=== PATIENT | female | born 1980 | race Caucasian/White ===

== ENCOUNTER → 2019-03-09 | Outpatient (CLI) | payer BC ==
--- NOTE | 2019-03-10 08:27 | MM ---
Reason for exam: screening (asymptomatic). Baseline mammogram. History: Benign excisional biopsy of the right breast, 1996. Took hormonal contraceptives beginning at age 19. Physical Findings: Nurse did not find any significant physical abnormalities on exam. MG 3D Screening Mammo W/Cad Bilateral CC and MLO view(s) were taken. The breast tissue is extremely dense which could obscure a lesion on mammography. There is no discrete abnormality. These results were verbally communicated with the patient and result sheet given to the patient on 03/09/19. ASSESSMENT: Negative, BI-RAD 1 RECOMMENDATION: Routine screening mammogram of both breasts in 1 year.
== END ==
LOC: RADMAMWWP 15:28
PROVIDERS: ATTEND Obstetrics & Gynecology
DX: Z12.31 Encounter for screening mammogram for malignant neoplasm of breast (principal)
CPT/HCPCS: 77063; 77067

== ENCOUNTER 2021-02-18 10:02 | Day surgery (SDC) | payer BC ==
[2021-02-12 16:00] VITALS: BMI 20.5
[~2021-02-18 10:02] MED LIST: LACTATED RINGERS 1,000 ML IV SCH; LIDOCAINE 1% (10MG/ML) FOR IV START INTRADERMA PRN
[2021-02-18 10:37] VITALS: TEMP 97.4
[2021-02-18] MEDS ORDERED: KETOROLAC 15 MG/ML 1 ML VIAL ONE (11:03)
[2021-02-18] MEDS ORDERED: ONDANSETRON 4 MG/2 ML VIAL ONE (11:03)
[2021-02-18] MEDS ORDERED: PROPOFOL 10 MG/ML 20 ML VIAL IV ONE (11:03)
--- NOTE | 2021-02-18 11:09 | P.GSHP ---
History of Present Illness H&P Date: 02/18/21 Chief Complaint: Change in bowel habits Patient today for colonoscopy. Family history of colon cancer in her aunt at age 50. Has had some change in bowel habits recently. Mild abdominal pain and cramps at times. 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 Migraines. c/o Constipation, bloating. History of Any Multi-Drug Resistant Organisms: None Reported Past Surgical History: Breast Surgery, Section Additional Past Surgical History / Comment(s): C-S x2. Rt breast biopsy. [place] teeth Past Anesthesia/Blood Transfusion Reactions: Family History of Problems w/ Anesthesia, Motion Sickness, Postoperative Nausea & Vomiting (PONV) Additional Past Anesthesia/Blood Transfusion Reaction / Comment(s): Mother has PONV Smoking Status: Former smoker - Past Family History Mother Family Medical History: No Reported History Medications and Allergies Home Medications Medication Instructions Recorded Confirmed Type Collagen Vitamin 1 tab PO DAILY 02/12/21 02/18/21 History Fluticasone Propionate [Cutivate] 1 dose TP TID PRN 02/12/21 02/18/21 History Multivitamins, Thera [Multivitamin 1 tab PO DAILY 02/12/21 02/18/21 History (formulary)] Vanquish 2 tab PO DIRECTED PRN 02/12/21 02/18/21 History Allergies Allergy/AdvReac Type Severity Reaction Status Date / Time adhesive tape Allergy Swelling, Verified 02/12/21 15:41 itching of skin Surgical - Exam Vital Signs Temp Pulse Resp BP Pulse Ox 97.4 F L 108 H 16 129/76 97 02/18/21 10:29 02/18/21 10:29 02/18/21 10:29 02/18/21 10:29 02/18/21 10:29 Physical exam: General: Well-developed, well-nourished HEENT: Normocephalic, sclerae nonicteric Abdomen: Nontender, nondistended Extremities: No edema Neuro: Alert and oriented Assessment and Plan (1) Change in bowel habits Narrative/Plan: Will proceed with colonoscopy Current Visit: Yes Status: Acute Code(s): R19.4 - CHANGE IN BOWEL HABIT SNOMED Code(s): 762301597
--- NOTE | 2021-02-18 11:22 | P.PCN ---
Date of Procedure: 02/18/21 Procedure(s) Performed: PREOPERATIVE DIAGNOSIS: Change in bowel habits, family history of colon cancer POSTOPERATIVE DIAGNOSIS: Normal exam PROCEDURE: Colonoscopy ANESTHESIA: MAC SURGEON: Ren John M.D. SPECIMENS: None ENDOSCOPIC PROCEDURE: The patient was placed on the endoscopy table in the left decubitus position. The Olympus colonoscope was inserted into the anus and passed under direct visualization to the base of the cecum. The appendiceal orifice was visualized. From that point the scope was slowly withdrawn inspecting all surfaces carefully. There were no neoplastic inflammatory or polypoid lesions throughout the cecum, ascending, transverse, descending, sigmoid and rectum. There was no visible diverticulosis noted. Digital rectal examination was normal. The patient was taken to the recovery room in stable condition per anesthesia guidelines. RECOMMENDATIONS: Resume diet. Follow colonoscopy age 46
[2021-02-18 11:49] VITALS: BP 106/66; PULSE 93; RESP 16
== END 2021-02-18 12:37 | disposition home or self-care (01) ==
LOC: ORWHC2ENDO 10:02
PROVIDERS: ATTEND Surgery
DX: R19.4 Change in bowel habit (principal); R10.9 Unspecified abdominal pain; Z80.0 Family history of malignant neoplasm of digestive organs; L40.9 Psoriasis, unspecified; G43.909 Migraine, unspecified, not intractable, without status migrainosus; Z98.891 History of uterine scar from previous surgery; Z98.890 Other specified postprocedural states; Z87.891 Personal history of nicotine dependence; Z91.09 Other allergy status, other than to drugs and biological substances
CPT/HCPCS: 81025; 45378; J2405; J1885; J2704

== ENCOUNTER → 2021-02-21 | Outpatient (CLI) | payer BC ==
[2021-02-22 00:17] LABS: Egg White IgE <0.10 kU/L
[2021-02-22 00:18] LABS: Peanut IgE 0.19 kU/L; Soybean IgE 0.17 kU/L; Walnut IgE (Food) <0.10 kU/L
[2021-02-25 07:36] LABS: Almond IgE 0.29 kU/L (<0.10); Almond IgE Class CLASS 0/1; Banana IgE Class CLASS 2; Casein IgE Class CLASS 0; Cashew IgE <0.10 kU/L (<0.10); Cashew IgE Class CLASS 0; Chicken IgE Class CLASS 0; Latex IgE Class CLASS 0/1; Pecan IgE <0.10 kU/L (<0.10); Pecan IgE Class CLASS 0; Pistachio IgE Class CLASS 0/1
== END | disposition home or self-care (01) ==
LOC: LABWHC1 11:18
PROVIDERS: ATTEND Allergy & Immunology
DX: T78.00XA Anaphylactic reaction due to unspecified food, initial encounter (principal); Z91.018 Allergy to other foods
CPT/HCPCS: 36415; 86003

== ENCOUNTER → 2021-04-10 | Outpatient (CLI) | payer BC ==
--- NOTE | 2021-04-15 09:43 | MM ---
Reason for exam: screening (asymptomatic). Last mammogram was performed 2 years and 1 month ago. History: Benign excisional biopsy of the right breast, 1996. Took hormonal contraceptives beginning at age 19. Physical Findings: A clinical breast exam by your physician is recommended on an annual basis and results should be correlated with mammographic findings. MG 3D Screening Mammo W/Cad Bilateral CC and MLO view(s) were taken. Prior study comparison: March 09, 2019, bilateral MG 3d screening mammo w/cad. The breast tissue is extremely dense which could obscure a lesion on mammography. Stable benign calcifications right breast. There is no discrete abnormality. No significant changes when compared with prior studies. ASSESSMENT: Benign, BI-RAD 2 RECOMMENDATION: Routine screening mammogram of both breasts in 1 year.
== END | disposition home or self-care (01) ==
LOC: RADMAMWWP 16:28
PROVIDERS: ATTEND Obstetrics & Gynecology
DX: Z12.31 Encounter for screening mammogram for malignant neoplasm of breast (principal)
CPT/HCPCS: 77063; 77067

== ENCOUNTER → 2021-04-24 | Outpatient (CLI) | payer BC ==
[2021-04-24 23:05] LABS: Basophils # (A) 0.04 X 10*3/uL (0.00-0.10); Basophils % (A) 0.6 %; Eosinophils # (A) 0.24 X 10*3/uL (0.04-0.35); Eosinophils % (A) 3.6 %; HCT 37.4 % (37.2-46.3); HGB 12.2 g/dL (12.0-15.0); Lymphocytes # (A) 1.77 X 10*3/uL (0.90-5.00); Lymphocytes % (A) 26.8 %; MCHC 32.6 g/dL (32.0-37.0); Mean Platelet Volume 10.7 fL (9.5-12.2); Monocytes # (A) 0.53 X 10*3/uL (0.20-1.00); Neutrophils # (A) 4.02 X 10*3/uL (1.80-7.70); Neutrophils % (A) 60.8 %; Platelet Count 191 X 10*3/uL (140-440); RDW 11.7 % (11.5-14.5); WBC 6.61 X 10*3/uL (4.50-10.00)
== END | disposition home or self-care (01) ==
LOC: LABWHC1 15:49
PROVIDERS: ATTEND Obstetrics & Gynecology
DX: Z01.812 Encounter for preprocedural laboratory examination (principal); N92.0 Excessive and frequent menstruation with regular cycle
CPT/HCPCS: 36415; 85025

== ENCOUNTER 2021-05-06 06:12 | Day surgery (SDC) | payer BC ==
--- NOTE | 2021-05-01 14:52 | HP ---
HISTORY AND PHYSICAL DATE OF SURGERY: 05/06/2021 This is a 40-year-old female, 2, para 2, 0, 0, 2 who presents with a history of menorrhagia and endometrial biopsy done in the office. Endometrial biopsy is negative. Patient is requesting NovaSure endometrial ablation. She is aware of the risks, benefits, and alternatives of this procedure. No further pregnancies are planned. PAST MEDICAL HISTORY: Essentially unremarkable. PAST SURGICAL HISTORY: section x2, breast biopsy of negative pathology. CURRENT MEDICATIONS: None. ALLERGIES: Include SUNFLOWER OIL and SURGICAL TAPE to which reports a rash. FAMILY HISTORY: Essentially negative. REPRODUCTIVE HISTORY: sections x2, healthy infants, unremarkable. SOCIAL HISTORY: Patient is a former tobacco smoker. She works for [employer]. She drinks 1-2 cups of coffee a day and is , her 's name is Magdi. She denies alcohol or drug use. CONTRACEPTIVE HISTORY: Patient and her are currently using condoms and are aware of the rate with the same. PHYSICAL EXAMINATION: On examination, the patient is 5 foot 6 inches, 126 pounds, blood pressure 118/72, pulse 102. HEENT exam reveals normal thyroid, no obvious lymphadenopathy, trachea midline. Chest is clear to auscultation in all mckee anteriorly and posteriorly. Cardiac exam reveals regular rate and rhythm with no murmur, click, or rub. Breasts are bilaterally symmetric to inspection with no skin dimpling, nipple discharge, axillary adenopathy, or discernible lesions or masses. Gastrointestinal exam reveals a scaphoid soft abdomen with no organosplenomegaly, no herniorrhaphy, no CVA tenderness. External genitalia are within normal limits for stated age. Cervix is multiparous, Pap is up to date. Uterus is small, mobile, nontender, midline, adnexa are negative bilaterally. Skin reveals normal inspection with no rashes or lesions. Neurologically the patient is intact, normal judgment and insight, normal mood and affect. IMPRESSION: Menorrhagia, requesting NovaSure endometrial ablation. PLAN: We will proceed with NovaSure endometrial ablation. Patient is aware of the need for permanent contraception following the ablation, as this is not a contraceptive procedure. We reviewed the risks of bleeding, infection, perforation or damage to the bladder, bowel, ureters, or any pelvic organ. The patient accepts these risks along with the risks of anesthesia, aspiration, nerve damage, or even . MMODL / IJN: [id number] /
[2021-05-02 15:32] VITALS: BMI 20.1
[~2021-05-06 06:12] MED LIST changes: +DEXAMETHASONE SOD PHOSPHATE 4 MG/ML 1 ML VIAL IV ONE; +Pre Op ABX Message 1 EACH MISC MISCELLANE ONE
[2021-05-06] MEDS ORDERED: SCOPOLAMINE 1.5MG/72HR PATCH TRANSDERM ONE (06:53)
[2021-05-06] MEDS ORDERED: ONDANSETRON 4 MG/2 ML VIAL IVP PRN (07:00)
[2021-05-06] MEDS ORDERED: HYDROmorphone 0.5 MG/0.5 ML SYRINGE IVP PRN (07:00)
[2021-05-06] MEDS ORDERED: PROPOFOL 10 MG/ML 20 ML VIAL IV ONE (07:20)
[2021-05-06] MEDS ORDERED: MIDAZOLAM 2 MG/2 ML VIAL ONE (07:20)
[2021-05-06] MEDS ORDERED: LIDOCAINE 1% INJ 10MG/ML (20 ML MDV) ONE (07:20)
[2021-05-06] MEDS ORDERED: KETOROLAC 15 MG/ML 1 ML VIAL ONE (07:20)
[2021-05-06] MEDS ORDERED: NALOXONE 0.4 MG/ML 1 ML VIAL ONE (07:20)
[2021-05-06] MEDS ORDERED: fentaNYL (PF) 50 MCG/ML 2 ML AMP ONE (07:20)
[2021-05-06] MEDS ORDERED: SILVER NITRATE APPLICATOR 1 EACH STICK..EA. TOPICAL ONE (07:52)
--- NOTE | 2021-05-06 08:14 | P.OP ---
Date of Procedure: 05/06/21 Preoperative Diagnosis: Hypermenorrhea, 2 previous sections Postoperative Diagnosis: Endometrial cavity dimensions inadequate for ablation procedure. Cavity otherwise negative. Procedure(s) Performed: Hysteroscopy, examination under anesthesia, endometrial ablation attempted, unsuccessful Anesthesia: KAITLIN Surgeon: Mari Ryder Estimated Blood Loss (ml): 5 IV fluids (ml): 400 Urine output (ml): 25 Pathology: none sent Condition: stable Operative Findings: Endometrial cavity clear. Ostia within normal limits. Cavity very small, uterine sound to 5 cm. Examination otherwise within normal limits. Description of Procedure: Patient is brought to the operating suite where a general anesthetic is administered. The appropriate timeout is performed to assure proper patient and procedural identification. Urine hCG is negative. Cervix and vagina as well as perineal bodies are all prepped and draped in usual sterile fashion. Exam under anesthesia reveals a small retroverted uterus, adnexa negative bilaterally. Bladder is drained for 5 mL of clear urine with a nonlatex catheter. Weighted speculum was placed into the vagina. Anterior lip of the cervix is grasped with a double-tooth tenaculum. Uterus sounds to 5 cm in the retroverted position. Cervix was gently and systematically dilated using Hanks dilators. Hysteroscope was placed and the cavity is infused with sterile saline. The cavity appears negative, ostia appear within normal limits. Hysteroscope was removed. The NovaSure wand is then placed. The wand is unable to open secondary to a very small endometrial cavity. This was attempted 3 times, uterine length of 4 cm is noted, but the Ray does not open to capture uterine width. Rather than override the machine, the procedure is terminated. Hysteroscope was once again placed and the cavity appears within normal limits without evidence of perforation. All sponge needle and enhancement counts are correct. Patient is brought back to the recovery room in very good condition with a blood pressure 100/45, pulse 58, respirations 16, 99% O2 saturation. I will follow-up with her in the office in 2 weeks. We will consider cyclic progesterone versus progesterone containing IUD to aid in her hypermenorrhea.
[2021-05-06 08:19] VITALS: TEMP 97
[2021-05-06 08:31] VITALS: RESP 16
[2021-05-06 09:10] VITALS: BP 103/68; PULSE 70
== END 2021-05-06 09:30 | disposition home or self-care (01) ==
LOC: OR 06:12
PROVIDERS: ATTEND Obstetrics & Gynecology
DX: N92.0 Excessive and frequent menstruation with regular cycle (principal); Z98.891 History of uterine scar from previous surgery; Z87.891 Personal history of nicotine dependence; Z53.9 Procedure and treatment not carried out, unspecified reason; Z79.899 Other long term (current) drug therapy; Z91.040 Latex allergy status; Z91.018 Allergy to other foods; Z91.09 Other allergy status, other than to drugs and biological substances; Z98.890 Other specified postprocedural states
CPT/HCPCS: 58563; 81025; J2250; J1100; J2310; J2405; J2001; J3010; J1885; J2704

== ENCOUNTER → 2021-07-18 | Outpatient (CLI) | payer BC ==
--- NOTE | 2021-07-18 19:05 | XR ---
EXAMINATION TYPE: XR lumbar spine 3V, XR Hip Complete 2V LT DATE OF EXAM: 07/18/2021 Comparison: None Clinical History: M54.5 Findings: Lumbar spine: 5 lumbar type vertebral bodies. Mild facet arthropathy lower lumbar spine. Vertebral body heights are preserved. Minimal endplate spondylosis noted lower lumbar spine with relative preservation of disc spaces. Left hip: Left hip joint space is maintained. No acute fracture, subluxation, or dislocation. Phleboliths in th e left side of the pelvis. Impression: 1. Lumbar spine: Minimal endplate spondylosis. Early facet arthropathy lower lumbar spine. No vertebr al compression collapse or malalignment. 2. Left hip: No acute osseous abnormality seen.
== END | disposition home or self-care (01) ==
LOC: RADXRMAIN 14:50
PROVIDERS: ATTEND Nurse Practitioner Family
DX: M47.816 Spondylosis without myelopathy or radiculopathy, lumbar region (principal)
CPT/HCPCS: 72100; 73502

== ENCOUNTER → 2022-04-24 | Outpatient (CLI) | payer BC ==
--- NOTE | 2022-04-24 08:18 | MM ---
Reason for Exam: Clinical finding. Last mammogram was performed 1 year(s) and 1 month(s) ago. Indicated Problems: Palpable abnormality of the right side (size 20) for 20 Year(s). Palpable abnormality of the right side (size 20) for 20 Year(s). Patient History: Menarche at age 15. First Full-Term at age 20. Premenopausal. Currently using Hormonal Contraceptives, beginning at age 19 for 23 years. 1996, Benign Excisional Biopsy on the right side. Last menstrual period: 03/16/2022 Risk Values: Allegra 5 year model risk: 0.6%. NCI Lifetime model risk: 8.2%. Prior Study Comparison: 03/09/2019 Bilateral Screening Mammogram, [facility]. 04/10/2021 Bilateral Screening Mammogram, [facility]. Tissue Density: The breast tissue is extremely dense which could obscure a lesion on mammography. Findings: Analyzed By CAD. Mammogram No discrete spiculated or lobular masses clustered microcalcifications or architectural distortion is evident. No suspicious mammographic abnormality is present at the level of the palpable abnormality on mammography. No significant interval change is evident.. Findings: The upper outer quadrant of the right breast, the axilla of the right breast and the retroareolar of the right breast were scanned. Multiple smaller cysts seen within same quadrantThere are simple appearing cysts in the upper outer quadrant 10:00 position at the level marked as the palpable abnormality. The largest of these grouped cysts is 1.6 x 1.7 x 0.7 cm. These have smooth borders and good through-transmission and posterior wall enhancement compatible simple cysts. These can be managed on a clinical basis. Overall Assessment: Benign, BI-RAD 2 Assessment: MG 3D diag mammo w/cad SOPHY - Bilateral: Benign, BI-RAD 2. US breast limited RT - Right: Benign, BI-RAD 2. Management: Screening Mammogram of both breasts in 1 year. A clinical breast exam by your physician is recommended on an annual basis and results should be correlated with mammographic findings. Results were given to the patient verbally at the time of exam. Management on clinical basis. Electronically signed and approved by: Peña Lee D.O. Radiologis
== END | disposition home or self-care (01) ==
LOC: RADMAMWWP 06:44
PROVIDERS: ATTEND Obstetrics & Gynecology
DX: R92.8 Other abnormal and inconclusive findings on diagnostic imaging of breast (principal); N60.01 Solitary cyst of right breast
CPT/HCPCS: 77062; 77066

== ENCOUNTER → 2022-09-09 | Outpatient (CLI) | payer BC ==
--- NOTE | 2022-09-09 16:18 | FL ---
EXAMINATION TYPE: FL arthrogram hip LT fluoroscopic-guided arthrogram injection. DATE OF EXAM: 09/09/2022 HISTORY: 42-year-old female worsening left hip pain and popping. PROCEDURES: 1. Left hip fluoroscopy. 2. Left hip arthrogram. TECHNIQUE: The procedure, risks, and alternatives, were discussed with the patient, who requested that janay thompson The consent form was signed, and teach-back occurred. The site/side of the procedure was marked with a line with participation by the patient. The accompan kvng paperwork was verified for consistency. A directed history and physical exam was performed prior to the procedure. A critical pause was performed with assisting personnel just prior to the procedure, and the patient' s identity was confirmed using 2 identifiers. Imaging guidance was utilized to select the precise skin entry point just prior to the procedure, ant erior left hip. The left hip was prepped and draped in the usual sterile fashion and local 1% lidocaine anesthesia wa s instilled. Under fluoroscopic guidance, a 22 gauge spinal needle was introduced into the anterior left hip joint appropriate needle tip position was confirmed after a small amount of contrast injecti on. Approximately 12 ml of a mixture of Isovue-370 iodinated contrast, 0.35 cc Gadavist and sterile salin e was injected into the left hip joint. The needle was then removed. The patient tolerated the proced ure well. Tegaderm dressing placed. There was no immediate complication. After the procedure, the patient's condition was unchanged. Estimated blood loss was minimal. Postprocedure radiograph suggests bilateral crossover signs at the hips. Pelvic phleboliths. Patient was counseled on routine postprocedure precautions including avoiding water at the skin entry site for the next 24 hours. IMPRESSION: Technically successful left hip arthrogram injection for MRI. No immediate complication.
--- NOTE | 2022-09-09 17:56 | MR ---
EXAMINATION TYPE: MR hip LT w con DATE OF EXAM: 09/09/2022 COMPARISON: Arthrogram injection same day HISTORY: 42-year-old female M25.552, worsening left hip pain Technique: Multiplanar, multisequence images of the left hip were obtained after intra-articular admi nistration of a gadolinium mixture. Please refer to arthrogram injection report of the same day for f madai details. FINDINGS: Retroverted uterus. Posterior fundal right measuring up to 2.2 cm. Moderate pelvic free fluid likely physiologic. There is adequate distention of the left hip joint space with administered contrast. Small synovial h erniation pit noted along the anterior femoral head neck junction. Slightly blunted appearance with s ome irregular signal within the acetabular labrum along the anterior superior quadrant, refer to sagi ttal series 801 image 16. This may reflect a very subtle tear of the acetabular labrum. No paralabral cysts. Relatively spherical appearance to the femoral head. No evidence of fracture or AVN. The visualized S I joints and sacrum appear intact. The left hip joint appears maintained. The gluteal and iliopsoas insertion as well as the rectus femoris and hamstring origins appear intact . Normal course, caliber, and signal intensity of the sciatic nerves. IMPRESSION: 1. Slightly blunted appearance to the acetabular labrum along the anterior superior quadrant with sug gestion of some degenerative signal. No well-defined tear is seen. Given the presence of a synovial h erniation pit at the anterior femoral head neck junction and possible crossover sign on the arthrogra m exam, correlate with physical exam testing for any potential symptoms of femoral acetabular impinge ment syndrome. 2. Retroverted uterus with a 2.2 cm fundal fibroid. Moderate pelvic free fluid likely physiologic.
== END | disposition home or self-care (01) ==
LOC: RADFLMAIN 12:35
PROVIDERS: ATTEND Orthopaedic Surgery
DX: M25.552 Pain in left hip (principal)
CPT/HCPCS: 27093; 73525; 73722; J2001; A9585; Q9967

== ENCOUNTER → 2023-10-29 | Outpatient (CLI) | payer BC ==
--- NOTE | 2023-11-02 11:47 | MM ---
Reason for Exam: Screening (asymptomatic). Last mammogram was performed 1 year(s) and 6 month(s) ago. Patient History: Menarche at age 15. First Full-Term at age 20. Premenopausal. Currently using Hormonal Contraceptives, beginning at age 19 for 23 years. 1997, Benign Excisional Biopsy on the right side. Last menstrual period: 10/28/2023 Risk Values: Allegra 5 year model risk: 0.7%. NCI Lifetime model risk: 8.0%. Prior Study Comparison: 03/09/2019 Bilateral Screening Mammogram, [facility]. 04/10/2021 Bilateral Screening Mammogram, [facility]. 04/24/2022 Bilateral MG 3D diag mammo w/cad SOPHY, [facility]. Tissue Density: The breast tissue is extremely dense which could obscure a lesion on mammography. Findings: Analyzed By CAD. Pattern appears symmetrical and stable. No significant interval change is evident. Benign calcifications within the anterior right breast. No suspicious groups of microcalcifications, spiculated or lobular masses, architectural distortion or other secondary signs of malignancy are mammographically apparent. Overall Assessment: Benign, BI-RAD 2 Management: Screening Mammogram of both breasts in 1 year. A negative mammogram report should not preclude additional follow up of suspicious palpable abnormalities. Patient should continue monthly self breast exam. A clinical breast exam by your physician is recommended on an annual basis and results should be correlated with mammographic findings. Electronically signed and approved by: Peña Lee D.O. Radiologis
== END | disposition home or self-care (01) ==
LOC: RADMAMWWP 15:59
PROVIDERS: ATTEND Obstetrics & Gynecology
DX: Z12.31 Encounter for screening mammogram for malignant neoplasm of breast (principal)
CPT/HCPCS: 77063; 77067

== ENCOUNTER → 2024-12-01 | Outpatient (CLI) | payer BC ==
--- NOTE | 2024-12-01 08:11 | MM ---
Reason for Exam: Screening (asymptomatic). Last mammogram was performed 1 year(s) and 1 month(s) ago. Patient History: Menarche at age 15. First Full-Term at age 20. Premenopausal. Hormonal Contraceptives, starting at age 19 for 23 years. 1996, Benign Excisional Biopsy on the right side. Risk Values: Allegra 5 year model risk: 0.7%. NCI Lifetime model risk: 7.9%. Prior Study Comparison: 04/10/2021 Bilateral Screening Mammogram, [facility]. 04/24/2022 Bilateral MG 3D diag mammo w/cad S[facility], [facility]. 10/29/2023 Bilateral MG 3D screening mammo w/cad, [facility]. Tissue Density: The breasts are extremely dense, which lowers the sensitivity of mammography. Findings: Analyzed By CAD. Right breast: There is no suspicious group of microcalcifications or new suspicious mass. Left breast: There is no suspicious group of microcalcifications or new suspicious mass. Overall Assessment: Negative, BI-RAD 1 Management: Screening Mammogram of both breasts in [address] [facility] will attempt to contact patient to return for supplemental views and ultrasound if indicated. Patient should continue monthly self-breast exams. A clinical breast exam by your physician is recommended on an annual basis. This exam should not preclude additional follow-up of suspicious palpable abnormalities. Note on Allegra scores and lifetime risk: 1. A Allegra score greater than 3% is considered moderate risk. If this is the case, consider specialist referral to assess eligibility for a risk reducing agent. 2. If overall lifetime risk for the development of breast cancer is 20% or higher, the patient may qualify for future screening with alternating mammogram and breast MRI. [facility], , 12/01/2024 8:08 AM. Electronically signed and approved by: Good Beckham DO
== END | disposition home or self-care (01) ==
LOC: RADMAMWWP 07:27
PROVIDERS: ATTEND Obstetrics & Gynecology
DX: Z12.31 Encounter for screening mammogram for malignant neoplasm of breast (principal); R92.343 Mammographic extreme density, bilateral breasts
CPT/HCPCS: 77063; 77067

== ENCOUNTER → 2025-06-01 | Outpatient (CLI) | payer BC ==
[2025-06-01 18:57] LABS: Basophils # (A) 0.03 X 10*3/uL (0.00-0.10); Basophils % (A) 0.5 %; Eosinophils # (A) 0.20 X 10*3/uL (0.04-0.35); Eosinophils % (A) 3.4 %; HCT 38.4 % (37.2-46.3); HGB 12.5 g/dL (12.0-15.0); Immature Grans, Automated 0.30 %; Lymphocytes # (A) 1.39 X 10*3/uL (0.90-5.00); Lymphocytes % (A) 23.6 %; MCH 28.7 pg (27.0-32.0); MCHC 32.6 g/dL (32.0-37.0); MCV 88.3 FL (80.0-97.0); Monocytes # (A) 0.45 X 10*3/uL (0.20-1.00); Monocytes % (A) 7.6 %; NRBC Per 100 WBC 0 X 10*3/uL (0.00-0.01); Neutrophils # (A) 3.80 X 10*3/uL (1.80-7.70); Neutrophils % (A) 64.6 %; Platelet Count 200 X 10*3/uL (140-440); RBC 4.35 X 10*6/uL (4.10-5.20); RDW 12.2 % (11.5-14.5); WBC 5.89 X 10*3/uL (4.50-10.00)
[2025-06-01 19:09] LABS: Anion Gap 9.20 mmol/L (4.00-12.00); Blood Urea Nitrogen 9.4 mg/dL (9.0-27.0); Carbon Dioxide 26.8 mmol/L (21.6-31.8); Chloride 102 mmol/L (96-109); Glucose 77 mg/dL (70-110); Potassium 3.9 mmol/L (3.5-5.5); Sodium 138 mmol/L (135-145)
== END | disposition home or self-care (01) ==
LOC: LABPAT 13:20
PROVIDERS: ATTEND Obstetrics & Gynecology Obstetrics
DX: Z01.812 Encounter for preprocedural laboratory examination (principal); N92.0 Excessive and frequent menstruation with regular cycle
CPT/HCPCS: 80051; 82565; 82947; 84520; 85025; 86850; 86900; 86901; 87086

== ENCOUNTER → 2025-06-18 | Outpatient (CLI) | payer BC ==
--- NOTE | 2025-06-18 15:36 | FL ---
EXAMINATION TYPE: FL cystogram DATE OF EXAM: 06/18/2025 COMPARISON: None HISTORY: 45-year-old female S37.20XA UNSPECIFIED INJURY OF BLADDER, INITIAL ENCOUNTER, PATIENT STATUS POST HYSTERECTOMY WITH INJURY TO THE BLADDER DURING SURGERY. PATIENT HAD CATHETER PLACEMENT. Total fluoroscopy time 1 minute 16 seconds. Total images: 31 Total DAP: 50 mGycm2. TECHNIQUE: Real-time fluoroscopy during instillation of 275 mL Cystografin contrast material through the patient's indwelling Cornell catheter. FINDINGS: The patient's bladder was gradually distended with Cystografin via gravity feed. There is normal, smo oth contour to the bladder. No extravasation of contrast is identified. No abnormal filling defect is seen. Patient began having difficulty tolerating the distention at approximately 275 mL at which poi nt, we relieve pressure by draining the catheter. No residual abnormal contrast is seen. IMPRESSION: No bladder leak identified. [facility], , 06/18/2025 3:33 PM
== END | disposition home or self-care (01) ==
LOC: RADFLMAIN 11:50
PROVIDERS: ATTEND Urology
DX: S37.20XA Unspecified injury of bladder, initial encounter (principal); X58.XXXA Exposure to other specified factors, initial encounter
CPT/HCPCS: 74430; Q9958